=== PATIENT | male | born 1935 | race Caucasian/White ===

== ENCOUNTER 2019-05-05 20:16 | Inpatient (IN) | payer MEDICARE ==
[~2019-05-05] VITALS: Ht 172.7 cm; Wt 84.8 kg
[2019-05-05] MEDS ORDERED: OMEP40CA2 PO (20:38)
[2019-05-05 21:14] LABS: BASO % 0.5 % (0.0-1.0); EOS # 0.1 10^3/uL (0.0-0.50); EOS % 0.6 % (0.0-3.0); HEMOGLOBIN 15.7 g/dl (13.5-17.5); LYMPH # 1.4 10^3/uL (1.5-4.5); LYMPH % 16.7 % (24.0-44.0); MEAN CORPUSCULAR HEMOGLOBIN 32.7 pg (27.0-33.0); MEAN CORPUSCULAR HGB CONC 33.4 g/dl (32.0-36.5); MEAN CORPUSCULAR VOLUME 97.9 fl (80.0-96.0); MONO # 0.9 10^3/uL (0.0-0.8); MONO % 11.6 % (0.0-5.0); NEUTROPHILS # 5.7 10^3/uL (1.8-7.7); NEUTROPHILS % 70.2 % (36.0-66.0); PLATELET COUNT, AUTOMATED 223 10^3/uL (150-450); WHITE BLOOD COUNT 8.1 10^3/uL (4.0-10.0)
--- NOTE | 2019-05-05 21:34 | REP ---
Clinical: Altered mental status. Possible loss of consciousness. Findings: Age-related atrophy and microvascular ischemic changes are appreciated. The ventricles and sulci are symmetric. Jeffers-white differentiation is maintained. There is no evidence for acute intracranial hemorrhage, mass/mass effect, pathology or infarction. No extra-axial fluid collection. Calvarium is intact. Paranasal sinuses and mastoid air cells are clear. Impression: Age related atrophy and microvascular ischemic changes. No acute intracranial hemorrhage, infarction, or mass/mass effect. Electronically Signed by Kraig Dubose MD 05/05/2019 09:25 P
[2019-05-05 21:37] LABS: INR 1.04; PROTHROMBIN TIME 13.3 SECONDS (11.8-14.0)
[2019-05-05 21:42] LABS: BLOOD UREA NITROGEN 27 MG/DL (7-18); CALCIUM LEVEL 9.3 MG/DL (8.8-10.2); CARBON DIOXIDE LEVEL 26 MEQ/L (21-32); CHLORIDE LEVEL 111 MEQ/L (98-107); CK-MB VALUE MASS 3.3 NG/ML (<3.6); CPK CREATINE PHOSPHOKINASE 229 U/L (39-308); CREATININE FOR GFR 1.42 MG/DL (0.70-1.30); ETHYL ALCOHOL (ETHANOL) < 0.003 % (0.000-0.010); GLOMERULAR FILTRATION RATE 50.6 (>35); GLUCOSE, FASTING 139 MG/DL (70-100); MAGNESIUM LEVEL 2.6 MG/DL (1.8-2.4); MB/CK RELATIVE INDEX 1.44 (< OR =4); POTASSIUM SERUM 4.6 MEQ/L (3.5-5.1); SODIUM LEVEL 143 MEQ/L (136-145); TROPONIN I < 0.02 NG/ML (< 0.10)
[2019-05-05] MEDS ORDERED: RA T500C2 PO (22:43)
[2019-05-05] MEDS ORDERED: VITMTA PO (22:43)
[2019-05-05] MEDS ORDERED: OMEP-221 PO (22:43)
[2019-05-05] MEDS ORDERED: ACET-907 PO (22:43)
[2019-05-05] MEDS ORDERED: CALCTAB6 PO (22:43)
[2019-05-05] MEDS ORDERED: RA K500C PO (22:43)
--- NOTE | 2019-05-05 23:12 | HPEPDOC ---
[facility], [place] Medical History & Physical Date of Admission May 05, 2019 Date of Service: May 05, 2019 History and Physical PCP: Dr. Delgado CHIEF COMPLAINT: Passed out HISTORY OF PRESENT ILLNESS: Patient is an 83-year-old man who is very healthy and very active has been retired for many years lives with his who tells me that yesterday while he was in the shower he had a fall. Denies any loss of consciousness or head trauma and cannot explain why exactly he felt but he found himself on the shower floor he did not think much of it. He denies any concerning prodromal symptoms he called his for help and came to his aid. He is otherwise been in his usual state of health until today he had a picnic and was eating he finished his meal was seen in the seat and felt very good after having a very good day and a very large meal. He denies any nausea chest pressure shortness of breath palpitations lightheadedness dizziness and reportedly was unresponsive for 15 minutes. He was unable to be aroused when he was awoken he was completely oriented and stated that he felt he was just taking a nap however numerous people at this picnic attempted to arouse him without any success. At the present time until he feels completely back to normal. Otherwise patient denies weight loss, hair loss, headache, visual changes, cough, diarrhea, abdominal pain, muscle aches, worsening arthritis, change in mood PAST MEDICAL HISTORY: 1. Kaplan's esophagus. HOME MEDICATIONS: Please see below. ALLERGIES: Please see below PAST SURGICAL HISTORY: 1. Hernia repairs. SOCIAL HISTORY: Lives with: , Employment: Retired but very active child his own would, Tobacco use: Denies. ETOH: One beer every 6 months, Illicit drug use: Denies, Tattoos done unprofessionally: Denies, CODE STATUS: Full code FAMILY HISTORY:Reviewed and noncontributory REVIEW OF SYSTEMS: 10 systems reviewed and negative other than HPI PHYSICAL EXAMINATION: VITAL SIGNS: Temperature 98.2, pulse 84, respiratory rate 12, blood pressure 117/59, pulse oximetry 93 % on 2 L nasal cannula GENERAL: Pleasant elderly man sitting up in bed awake alert oriented speaking in complete sentences no acute distress HEENT: Moist mucous membranes no elevation and CVP CARDIOVASCULAR: S1 S2 regular no additional heart sounds appreciated. RESPIRATORY: Clear to auscultation bilaterally. ABDOMINAL: Bowel sounds present abdomen soft and nontender, mildly obese EXTREMITIES: No clubbing cyanosis or edema NEUROLOGICAL: Spontaneously moves all 4 extremities cranial 2 through 12 grossly intact no gross focal deficits appreciated PSYCHOLOGICAL: Appropriate LABORATORY DATA: See below. MICROBIOLOGY: Please see below. IMAGING: Chest x-ray: Report pending CT head:Age related atrophy and microvascular ischemic changes. No acute intracranial hemorrhage, infarction, or mass/mass effect. ASSESSMENT & PLAN: This is a 83-year-old man with syncope. PROBLEMS: 1. Syncope: Etiology is not immediately clear does not appear to be post ictal no loss of bladder or bowel no neurological deficits given the transient nature and is almost immediate spontaneous recovery I'm certainly concerned for cardiogenic arrhythmia. I'll admitted to PCU monitor on telemetry check an echocardiogram. Patient's reports that he never complains of any symptoms and so his fairly negative review of systems is not surprising. I'll work with PT check a UA as well as a pro-calcitonin and monitor him closely. His BUN and creatinine are slightly elevated we have no baseline for comparison I'll provide him with gentle fluids certainly some mild dehydration can cause him to sy ncopized as well. I will check orthostatics. I will monitor his troponin 2. Kaplan's esophagus: Continue with omeprazole 40 mg daily DVT PROPHYLAXIS: Heparin DISPOSITION: Admitted to PCU telemetry for further workup Vital Signs Vital Signs Date Time Temp Pulse Resp B/P (MAP) Pulse Ox O2 Delivery O2 Flow Rate FiO2 05/05/19 22:22 74 14 94 Nasal Cannula 2.0 05/05/19 22:16 153/81 (105) 05/05/19 20:34 98.2 Laboratory Data Labs 24H Laboratory Tests 2 05/05/19 20:57: Immature Granulocyte % (Auto) 0.4, White Blood Count 8.1, Red Blood Count 4.80, Hemoglobin 15.7, Hematocrit 47.0, Mean Corpuscular Volume 97.9H, Mean Corpuscular Hemoglobin 32.7, Mean Corpuscular Hemoglobin Concent 33.4, Red Cell Distribution Width 13.7, Platelet Count 223, Neutrophils (%) (Auto) 70.2H, Lymphocytes (%) (Auto) 16.7L, Monocytes (%) (Auto) 11.6H, Eosinophils (%) (Auto) 0.6, Basophils (%) (Auto) 0.5, Neutrophils # (Auto) 5.7, Lymphocytes # (Auto) 1.4L, Monocytes # (Auto) 0.9H, Eosinophils # (Auto) 0.1, Basophils # (Auto) 0.0, Nucleated Red Blood Cells % (auto) 0.0, Prothrombin Time 13.3, Prothromb Time International Ratio 1.04, Anion Gap 6L, Glomerular Filtration Rate 50.6, Blood Urea Nitrogen 27H, Creatinine 1.42H, Sodium Level 143, Potassium Level 4.6, Ch loride Level 111H, Carbon Dioxide Level 26, Calcium Level 9.3, Total Creatine Kinase 229, Magnesium Level 2.6H, Creatine Kinase MB 3.3, Creatine Kinase MB Relative Index 1.44, Troponin I < 0.02, Thyroid Stimulating Hormone (TSH) 1.500, Ethyl Alcohol Level < 0.003 CBC/BMP Laboratory Tests 05/05/19 20:57 Red Blood Count 4.80, Mean Corpuscular Volume 97.9 H, Mean Corpuscular Hem oglobin 32.7, Mean Corpuscular Hemoglobin Concent 33.4, Red Cell Distribution Width 13.7, Neutrophils (%) (Auto) 70.2 H, Lymphocytes (%) (Auto) 16.7 L, Monocytes (%) (Auto) 11.6 H, Eosinophils (%) (Auto) 0.6, Basophils (%) (Auto) 0.5, Neutrophils # (Auto) 5.7, Lymphocytes # (Auto) 1.4 L, Monocytes # (Auto) 0.9 H, Eosinophils # (Auto) 0.1, Basophils # (Auto) 0.0, Calcium Level 9.3, Total Creatine Kinase 229 Home Medications Scheduled Calcium Carbonate/Vitamin D3 (Calcium 600-Vit D3 400 Tablet) 1 Each Tablet, 1 TAB PO DAILY Krill Oil (Krill Oil) 500 Mg Capsule, 500 MG PO QHS Multivitamins (Thera M Plus Tablet) 1 Each Tablet, 1 TAB PO DAILY Omeprazole (Omeprazole) 40 Mg Capsule.dr, 40 MG PO DAILY Turmeric Root Extract (Turmeric) 500 Mg Capsule, 500 MG PO QHS Scheduled PRN Acetaminophen (Tylenol) 325 Mg Tablet, 650 MG PO Q4H PRN for PAIN Allergies Coded Allergies: scallops (Verified Allergy, Intermediate, 05/05/19) HIVES A-FIB/CHADSVASC A-FIB History Current/History of A-Fib/PAF?: No JASPER LOPEZ MD May 05, 2019 23:12
[2019-05-05 23:17] LABS: VITAMIN B12 LEVEL 423 PG/ML (247-911)
[2019-05-05 23:18] LABS: FOLATE > 24.0 NG/ML (>5.4)
[2019-05-06] MEDS: NS 1,000 ML IV SCH ×2 (02:50→14:34)
[2019-05-06 03:00] VITALS: BP 168/82
[2019-05-06 03:12] LABS: HEMATOCRIT 45.5 % (42.0-52.0); MEAN CORPUSCULAR HEMOGLOBIN 32.4 pg (27.0-33.0); MEAN CORPUSCULAR VOLUME 98.3 fl (80.0-96.0); PLATELET COUNT, AUTOMATED 217 10^3/uL (150-450); RED BLOOD COUNT 4.63 10^6/uL (4.30-6.10); WHITE BLOOD COUNT 5.8 10^3/uL (4.0-10.0)
[2019-05-06 03:42] LABS: BLOOD UREA NITROGEN 28 MG/DL (7-18); CALCIUM LEVEL 8.8 MG/DL (8.8-10.2); CARBON DIOXIDE LEVEL 28 MEQ/L (21-32); CHLORIDE LEVEL 110 MEQ/L (98-107); CREATININE FOR GFR 1.22 MG/DL (0.70-1.30); GLOMERULAR FILTRATION RATE > 60.0 (>35); GLUCOSE, FASTING 91 MG/DL (70-100); POTASSIUM SERUM 4.4 MEQ/L (3.5-5.1); SODIUM LEVEL 145 MEQ/L (136-145); TROPONIN I < 0.02 NG/ML (< 0.10)
--- NOTE | 2019-05-06 07:28 | REP ---
Portable chest, 09:07 p.m., single AP view the patient sitting: There are no comparisons. The lung santos are clear. The cardiac size is normal. The ousmane, mediastinum, and skeletal structures are unremarkable. Impression: Negative portable chest. Probable hiatal hernia Electronically Signed by Rudy Gould MD 05/06/2019 07:19 A
[2019-05-06 08:00] VITALS: BP 138/70
[2019-05-06] MEDS: HEPARIN SOD (PORCINE) 5000 UNITS/ML VIAL SC SCH ×2 (08:53→20:01)
[2019-05-06] MEDS: OMEPRAZOLE 20 MG CAP PO SCH (08:53)
--- NOTE | 2019-05-06 13:16 | REP ---
Clinical: Syncope . Technique: Jeffers scale and color Doppler evaluation using linear high frequency transducer Findings: Two-dimensional jeffers scale and color images demonstrate normal arterial lumen with laminar flow and no appreciable narrowing. Color Doppler interrogation demonstrates normal arterial wave patterns and velocities with no significant spectral broadening. Normal flow direction is appreciated in the bilateral vertebral arteries. RIGHT (cm/s) LEFT (cm/s) ICA peak systolic velocity 73.0 74.7 ICA diastolic velocity 21.6 21.0 ECA peak systolic velocity 99.1 97.6 CCA peak systolic velocity 77.7 73.5 ICA/CCA ratio 0.94 1.02 Impression: No hemodynamically significant areas of narrowing or stenosis appreciated. Based on set standards narrowing falls within the normal/less than 50% range. Electronically Signed by Kraig Dubose MD 05/06/2019 01:07 P
[2019-05-06 16:00] VITALS: BP 135/85
--- NOTE | 2019-05-06 16:43 | IPNPDOC ---
Text Note Date of Service The patient was seen on 05/06/19. NOTE Pt was seen and examined at bedside. Pt is pleasant gentleman in no acute di stress. Pt denies any chest pain or palpitations. Denies any similar episode in the past. Denies any dyspnea. No PMHx was not on any medications. PHE: Gen AAOx3 on telemetry NAD HEENT no carotid bruit no JVD neck is supple no trauma to head CVS S1 S2 regular rhythm no murmur Lungs bilat good air entry no wheezing no rales Abdomen soft NT ND Ext no edema no cyanosis no clubbing Neuro motor sensory intact Psych mood affect appropriate Vital Signs Date Time Temp Pulse Resp B/P (MAP) Pulse Ox O2 Delivery O2 Flow Rate FiO2 05/06/19 08:00 97.7 78 18 138/70 (92) 97 05/06/19 03:00 98.1 69 16 168/82 (110) 99 05/06/19 02:30 65 14 138/79 (98) 96 Nasal Cannula 2.0 05/06/19 02:15 64 14 132/70 (90) 96 Nasal Cannula 2.0 05/06/19 02:00 64 14 135/69 (91) 93 Nasal Cannula 2.0 05/06/19 01:45 70 14 145/71 (95) 95 Nasal Cannula 2.0 05/06/19 01:30 69 14 131/74 (93) 95 Nasal Cannula 2.0 05/06/19 01:15 97.9 64 14 129/68 (88) 94 Nasal Cannula 2.0 05/06/19 01:00 67 14 127/62 (83) 94 Nasal Cannula 2.0 05/06/19 00:45 72 14 138/75 (96) 95 Nasal Cannula 2.0 05/06/19 00:30 68 14 136/70 (92) 95 Nasal Cannula 2.0 05/06/19 00:15 70 14 124/64 (84) 95 Nasal Cannula 2.0 05/06/19 00:00 72 14 116/65 (82) 93 Nasal Cannula 2.0 05/05/19 23:45 127/69 (88) 05/05/19 23:37 70 14 93 Nasal Cannula 2.0 05/05/19 23:30 139/71 (93) 05/05/19 23:22 72 14 96 Nasal Cannula 2.0 05/05/19 23:15 149/76 (100) 05/05/19 23:07 75 14 94 Nasal Cannula 2.0 05/05/19 23:00 125/67 (86) 05/05/19 22:52 75 14 93 Nasal Cannula 2.0 05/05/19 22:45 137/66 (89) 05/05/19 22:37 75 14 93 Nasal Cannula 2.0 05/05/19 22:22 74 14 94 Nasal Cannula 2.0 05/05/19 22:16 153/81 (105) 05/05/19 22:07 71 14 91 Nasal Cannula 2.0 05/05/19 21:52 160/74 (102) 05/05/19 21:49 77 14 92 Nasal Cannula 2.0 05/05/19 21:34 71 14 92 Nasal Cannula 2.0 05/05/19 21:19 77 14 94 Nasal Cannula 2.0 05/05/19 21:06 64 117/59 (78) 70 118/64 (82) 79 109/58 (75) 05/05/19 21:04 109/58 (75) 05/05/19 21:03 118/64 (82) 05/05/19 21:02 117/59 (78) 05/05/19 21:01 79 14 93 Nasal Cannula 2.0 05/05/19 21:00 122/69 (86) 05/05/19 20:46 81 14 92 Room Air 05/05/19 20:45 113/67 (82) 05/05/19 20:34 98.2 84 14 127/66 96 Room Air 05/05/19 20:31 85 14 127/66 (86) 96 Room Air Intake & Output 05/06/19 06:00 Intake Total 675 ml Output Total 175 ml Balance 500 ml Laboratory Tests 05/05/19 20:57: White Blood Count 8.1, Red Blood Count 4.80, Hemoglobin 15.7, Hematocrit 47.0, Mean Corpuscular Volume 97.9H, Mean Corpuscular Hemoglobin 32.7, Mean Corpuscular Hemoglobin Concent 33.4, Red Cell Distribution Width 13.7, Platelet Count 223, Neutrophils (%) (Auto) 70.2H, Lymphocytes (%) (Auto) 16.7L, Monocytes (%) (Auto) 11.6H, Eosinophils (%) (Auto) 0.6, Basophils (%) (Auto) 0.5, Neutrophils # (Auto) 5.7, Lymphocytes # (Auto) 1.4L, Monocytes # (Auto) 0.9H, Eosinophils # (Auto) 0.1, Basophils # (Auto) 0.0, Immature Granulocyte % (Auto) 0.4, Nucleated Red Blood Cells % (auto) 0.0, Prothrombin Time 13.3, Prothromb Time International Ratio 1.04, Blood Urea Nitrogen 27H, Creatinine 1.42H, Sodium Level 143, Potassium Level 4.6, Chloride Level 111H, Carbon Dioxide Level 26, Calcium Level 9.3, Total Creatine Kinase 229, Anion Gap 6L, Glomerular Filtration Rate 50.6, Fasting Glucose 139H, Magnesium Level 2.6H, Creatine Kinase MB 3.3, Creatine Kinase MB Relative Index 1.44, Troponin I < 0.02, Vitamin B12 Level 423, Folate > 24.0, Thyroid Stimulating Hormone (TSH) 1.500, Ethyl Alcohol Level < 0.003 05/05/19 22:56: Estimated Mean Plasma Glucose 126H, Hemoglobin A1c 6.0 05/06/19 02:56: White Blood Count 5.8, Red Blood Count 4.63, Hemoglobin 15.0, Hematocrit 45.5, Mean Corpuscular Volume 98.3H, Mean Corpuscular Hemoglobin 32.4, Mean Corpuscular Hemoglobin Concent 33.0, Red Cell Distribution Width 13.9, Platelet Count 217, Nucleated Red Blood Cells % (auto) 0.0, Blood Urea Nitrogen 28H, Creatinine 1.22, Sodium Level 145, Potassium Level 4.4, Chloride Level 110H, Carbon Dioxide Level 28, Calcium Level 8.8, Anion Gap 7L, Glomerular Filtration Rate > 60.0, Fasting Glucose 91, Troponin I < 0.02, Procalcitonin 0.03 05/06/19 08:52: Urine Color YELLOW, Urine Appearance CLEAR, Urine pH 5.0, Urine Specific Hughson 1.020, Urine Protein NEGATIVE, Urine Glucose (UA) NEGATIVE, Urine Ketones NEGATIVE, Urine Blood NEGATIVE, Urine Nitrite NEGATIVE, Urine Bilirubin NEGATIVE, Urine Urobilinogen 0.2, Urine Leukocyte Esterase NEGATIVE, Urine WBC (Auto) 2, Urine RBC (Auto) 6H, Urine Hyaline Casts (Auto) 0, Urine Bacteria (Auto) NEGATIVE, Urine Squamous Epithelial Cells 0, Urine Calcium Oxalate Cryst (Auto) SMALL, Urine Mucus (Auto) SMALL, Urine Sperm (Auto) Current Medications Medications (Trade) Dose Ordered Sig/Husam Route PRN Reason Start Time Stop Time Status Last Admin Dose Admin Omeprazole (PriLOSEC) 40 mg DAILY PO 05/06/19 09:00 05/06/19 08:53 40 MG Sodium Chloride 1,000 ml @ 75 mls/hr [id number] IV 05/05/19 22:45 05/06/19 14:34 75 MLS/HR A/P 1-Syncope 2-Hx of GERD with Barretts Esophagus Pt is 83 y/o M with no PMHx admitted due to one episode of being unresponsive for 15 min with lightheadedness prior to the episode. No motor sensory deficit. Speech, memoy intact. Pt reports to me that before the episode happens his eyes blacked out for few seconds and he does not recall what happened after that. Likely sec to transient decreased blood flow to intracranial circulation sec to cardiac arrhythmias versus TIA versus Seizure Absence. Carotid Doppler Bilat. Ordered Telemetry 48hr 2DEcho DVT Prophylaxis Disposition: DC home pending result of syncope work up. VS,Fishbone, I+O VS, Fishbone, I+O Laboratory Tests 05/05/19 20:57 Red Blood Count 4.80, Mean Corpuscular Volume 97.9 H, Mean Corpuscular Hemoglobin 32.7, Mean Corpuscular Hemoglobin Concent 33.4, Red Cell Distribution Width 13.7, Neutrophils (%) (Auto) 70.2 H, Lymphocytes (%) (Auto) 16.7 L, Monocytes (%) (Auto) 11.6 H, Eosinophils (%) (Auto) 0.6, Basophils (%) (Auto) 0.5, Neutrophils # (Auto) 5.7, Lymphocytes # (Auto) 1.4 L, Monocytes # (Auto) 0.9 H, Eosinophils # (Auto) 0.1, Basophils # (Auto) 0.0, Calcium Level 9.3, Total Creatine Kinase 229 05/06/19 02:56 Red Blood Count 4.63, Mean Corpuscular Volume 98.3 H, Mean Corpuscular Hemoglobin 32.4, Mean Corpuscular Hemoglobin Concent 33.0, Red Cell Distribution Width 13.9, Calcium Level 8.8 Vital Signs Date Time Temp Pulse Resp B/P (MAP) Pulse Ox O2 Delivery O2 Flow Rate FiO2 05/06/19 08:00 97.7 78 18 138/70 (92) 97 05/06/19 02:30 Nasal Cannula 2.0 I&O- Last 24 Hours up to 6 AM0 05/06/19 06:00 Intake Total 675 ml Output Total 175 ml Balance 500 ml YAN BENTLEY MD May 06, 2019 16:43
[2019-05-06 20:00] VITALS: BP 164/80
[2019-05-06 23:59] VITALS: BP 147/76
[2019-05-07 04:00] VITALS: BP 124/78
[2019-05-07] MEDS: NS 1,000 ML IV SCH (04:00)
[2019-05-07 05:18] LABS: HEMOGLOBIN 13.8 g/dl (13.5-17.5); MEAN CORPUSCULAR HEMOGLOBIN 31.3 pg (27.0-33.0); MEAN CORPUSCULAR HGB CONC 32.1 g/dl (32.0-36.5); MEAN CORPUSCULAR VOLUME 97.5 fl (80.0-96.0); PLATELET COUNT, AUTOMATED 184 10^3/uL (150-450); RED BLOOD COUNT 4.41 10^6/uL (4.30-6.10); WHITE BLOOD COUNT 4.9 10^3/uL (4.0-10.0)
[2019-05-07 05:35] LABS: BLOOD UREA NITROGEN 16 MG/DL (7-18); CARBON DIOXIDE LEVEL 27 MEQ/L (21-32); CHLORIDE LEVEL 113 MEQ/L (98-107); CREATININE FOR GFR 0.94 MG/DL (0.70-1.30); GLOMERULAR FILTRATION RATE > 60.0 (>35); GLUCOSE, FASTING 94 MG/DL (70-100); POTASSIUM SERUM 4.1 MEQ/L (3.5-5.1); SODIUM LEVEL 144 MEQ/L (136-145)
[2019-05-07] MEDS: HEPARIN SOD (PORCINE) 5000 UNITS/ML VIAL SC SCH (07:31)
[2019-05-07 08:00] VITALS: BP 119/64
[2019-05-07] MEDS: OMEPRAZOLE 20 MG CAP PO SCH (09:32)
--- NOTE | 2019-05-07 09:33 | ECGEPIP ---
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
[2019-05-07 12:00] VITALS: BP 145/72
--- NOTE | 2019-05-07 15:02 | ECHO ---
DATE OF PROCEDURE: 05/06/2019 AGE: 83 GENDER: Male HEIGHT: 68 inches WEIGHT: 180 pounds BODY SURFACE AREA: 1.95 m2 PATIENT LOCATION: Inpatient, PCU, room 3214 REFERRING PHYSICIAN: Harleen Haas MD INDICATION: Syncope. 2-D MEASUREMENTS: RV: 4.5 cm LV: 4.5 cm Septum: 1.0 cm Posterior wall: 0.9 cm Aortic root: 3.3 cm LA: 3.8 cm LVEF: 75% DOPPLER MEASUREMENTS: AV: 1.7 m/s LVOT: 1.1 m/s LVOT diameter: 2.2 cm MV-E: 85, A: 120, EA ratio: 0.7 Early mitral deceleration time: 211 ms E prime: 6.5, A prime: 14, E/E prime ratio: 13 PCWP: 16 mmHg PV: 0.9 m/s Pulmonary artery acceleration time: 99 ms RVSP: 38 mmHg IVC: 1.7 cm COMMENTS Normal sinus rhythm without intraventricular conduction disturbance. M-mode and two-dimensional echocardiography was performed with pulsed, continuous wave, color flow and tissue Doppler studies. Normal left ventricular size, wall thickness and hyperkinetic wall motion. Left atrium upper limits of normal in size with Doppler evidence of impairment of LV diastolic function, but only slightly elevated mean left atrial pressure. Mildly dilated right heart chambers with normal right ventricular free wall motion and current Doppler evidence of mild pulmonary hypertension. Normal IVC size and collapse against an elevated central venous pressure. Mild aortic valvular sclerosis without stenosis and only trace insufficiency. Degenerative changes of his mitral valvular apparatus with mild insufficiency. Normal appearing tricuspid valve with mild tricuspid insufficiency. Normal aortic root size. No apparent intracardiac mass or pericardial effusion.
--- NOTE | 2019-05-16 | DS.PDOC ---
Discharge Summary General Date of Admission May 05, 2019 at 22:24 Date of Discharge May 07, 2019 Discharge Summary PROCEDURES PERFORMED DURING STAY: [None]. ADMITTING DIAGNOSES: 1-Syncope 2-Hx of GERD with Barretts Esophagus DISCHARGE DIAGNOSES: as above COMPLICATIONS/CHIEF COMPLAINT: Syncope. HISTORY OF PRESENT ILLNESS: Patient is an 83-year-old man who is very healthy and very active has been retired for many years lives with his who tells me that yesterday while he was in the shower he had a fall. Denies any loss of consciousness or head trauma and cannot explain why exactly he felt but he found himself on the shower floor he did not think much of it. He denies any concerning prodromal symptoms he called his for help and came to his aid. He is otherwise been in his usual state of health until today he had a picnic and was eating he finished his meal was seen in the seat and felt very good after having a very good day and a very large meal. He denies any nausea chest pressure shortness of breath palpitations lightheadedness dizziness and reportedly was unresponsive for 15 minutes. He was unable to be aroused when he was awoken he was completely oriented and stated that he felt he was just taking a nap however numerous people at this picnic attempted to arouse him without any success. At the present time until he feels completely back to normal. Otherwise patient denies weight loss, hair loss, headache, visual changes, cough, diarrhea, abdominal pain, muscle aches, worsening arthritis, change in mood HOSPITAL COURSE: Pt is 83 y/o M with no PMHx admitted due to one episode of being unresponsive for 15 min with lightheadedness prior to the episode. No motor sensory deficit. Speech, memoy intact. Pt reports to me that before the episode happens his eyes blacked out for few seconds and he does not recall what happened after that. Likely sec to transient decreased blood flow to intracranial circulation sec to cardiac arrhythmias versus TIA versus Seizure Absence. Carotid Doppler Bilat. unremarkable Telemetry 48hr no events 2DEcho unremarkable DVT Prophylaxis DISCHARGE MEDICATIONS: Please see below. ALLERGIES: Please see below. PHYSICAL EXAMINATION ON DISCHARGE: VITAL SIGNS: Please see below. Gen AAOx3 on telemetry NAD HEENT no carotid bruit no JVD neck is supple no trauma to head CVS S1 S2 regular rhythm no murmur Lungs bilat good air entry no wheezing no rales Abdomen soft NT ND Ext no edema no cyanosis no clubbing Neuro motor sensory intact Psych mood affect appropriate LABORATORY DATA: Please see below. IMAGING: DATE OF PROCEDURE: 05/06/2019 AGE: 83 GENDER: Male HEIGHT: 68 inches WEIGHT: 180 pounds BODY SURFACE AREA: 1.95 m2 PATIENT LOCATION: Inpatient, PCU, room 3214 REFERRING PHYSICIAN: Harleen Haas MD INDICATION: Syncope. 2-D MEASUREMENTS: RV: 4.5 cm LV: 4.5 cm Septum: 1.0 cm Posterior wall: 0.9 cm Aortic root: 3.3 cm LA: 3.8 cm LVEF: 75% DOPPLER MEASUREMENTS: AV: 1.7 m/s LVOT: 1.1 m/s LVOT diameter: 2.2 cm MV-E: 85, A: 120, EA ratio: 0.7 Early mitral deceleration time: 211 ms E prime: 6.5, A prime: 14, E/E prime ratio: 13 PCWP: 16 mmHg PV: 0.9 m/s Pulmonary artery acceleration time: 99 ms RVSP: 38 mmHg IVC: 1.7 cm COMMENTS Normal sinus rhythm without intraventricular conduction disturbance. M-mode and two-dimensional echocardiography was performed with pulsed, continuous wave, color flow and tissue Doppler studies. Normal left ventricular size, wall thickness and hyperkinetic wall motion. Left atrium upper limits of normal in size with Doppler evidence of impairment of LV diastolic function, but only slightly elevated mean left atrial pressure. Mildly dilated right heart chambers with normal right ventricular free wall motion and current Doppler evidence of mild pulmonary hypertension. Normal IVC size and collapse against an elevated central venous pressure. Mild aortic valvular sclerosis without stenosis and only trace insufficiency. Degenerative changes of his mitral valvular apparatus with mild insufficiency. Normal appearing tricuspid valve with mild tricuspid insufficiency. Normal aortic root size. No apparent intracardiac mass or pericardial effusion. PROGNOSIS:fair ACTIVITY: [As tolerated]. DIET: no restriction DISCHARGE PLAN: DISPOSITION: 01 Home, Self-Care. DISCHARGE INSTRUCTIONS: 1. return to ED with fever LOC weakness ITEMS TO FOLLOWUP ON ON OUTPATIENT: 1. pcp in one week DISCHARGE CONDITION: [Stable]. TIME SPENT ON DISCHARGE: Greater than [30] minutes. Vital Signs/I&Os Vital Signs Date Time Temp Pulse Resp B/P (MAP) Pulse Ox O2 Delivery O2 Flow Rate FiO2 05/07/19 12:00 98.2 68 18 145/72 (96) 100 05/06/19 02:30 Nasal Cannula 2.0 I&O- Last 24 Hours up to 6 AM 05/08/19 06:00 Intake Total 1320 ml Output Total 1500 ml Balance -180 ml Discharge Medications Scheduled Calcium Carbonate/Vitamin D3 (Calcium 600-Vit D3 400 Tablet) 1 Each Tablet, 1 TAB PO DAILY, (Reported) Krill Oil (Krill Oil) 500 Mg Capsule, 500 MG PO QHS, (Reported) Multivitamins (Thera M Plus Tablet) 1 Each Tablet, 1 TAB PO DAILY, (Reported) Omeprazole (Omeprazole) 40 Mg Capsule.dr, 40 MG PO DAILY, (Reported) Turmeric Root Extract (Turmeric) 500 Mg Capsule, 500 MG PO QHS, (Reported) Scheduled PRN Acetaminophen (Tylenol) 325 Mg Tablet, 650 MG PO Q4H PRN for PAIN, (Reported) Allergies Coded Allergies: scallops (Verified Allergy, Intermediate, 05/05/19) YAN VENEGAS MD May 08, 2019 17:31
== END 2019-05-07 15:30 | disposition home or self-care (01) | DRG 312 ==
LOC: M ED 20:16 → M ED INP 22:24 → M PCU 05-06 02:40
PROVIDERS: ADMIT Internal Medicine; ATTEND Hospitalist
DX: R55 Syncope and collapse (principal); K21.9 Gastro-esophageal reflux disease without esophagitis; K22.70 Barrett's esophagus without dysplasia; Z91.013 Allergy to seafood; Z79.899 Other long term (current) drug therapy